=== PATIENT | female | born 1940 | race American Indian/Alaskan Native ===

== ENCOUNTER 2017-08-28 13:25 | Emergency (ER) | payer MEDICARE ==
--- NOTE | 2017-08-28 14:04 | Emergency Department Report ---
- General Chief complaint: Weakness Stated complaint: POOR APPETITE X 3 DAYS Time Seen by Provider: 08/28/17 13:39 Source: EMS Mode of arrival: Stretcher Limitations: Physical Limitation - History of Present Illness Initial comments: Patient from [facility] not acting quite right today history of dementia family says she doesn't wanna eat, family here for eval, possible change in baseline ms, weak all over, not eating, pt is awake and verbal afeb, protecting airway, follows some commands MD Complaint: generalized weakness -: Gradual, unknown Location: generalized Severity: mild, moderate Severity scale (0 -10): 0 Consistency: intermittent Context: other (history of dementia with history of dysphagia) - Related Data Home Medications Medication Instructions Recorded Confirmed Last Taken Acetaminophen [Acetaminophen TAB] 650 mg PO Q6HR PRN 06/30/15 06/30/15 Unknown Bisoprolol/Hctz [Ziac 2.5-6.25] 1 tab PO DAILY 06/30/15 06/30/15 Unknown Docusate Sodium [Colace CAP] 100 mg PO DAILY 06/30/15 06/30/15 Unknown Lisinopril [Zestril TAB] 2.5 mg PO DAILY 06/30/15 06/30/15 Unknown Milk of Magnesia 1,200 mg PO PRN 06/30/15 06/30/15 Unknown Vitamin A 1 tab PO DAILY 06/30/15 06/30/15 Unknown Zofran Odt 4 mg PO PRN 06/30/15 06/30/15 Unknown Previous Rx's Medication Instructions Recorded Last Taken Type Levofloxacin [Levaquin TAB] 500 mg PO QDAY #7 tablet 07/11/15 Unknown Rx Ciprofloxacin HCl [Cipro] 500 mg PO BID #14 tablet 08/28/17 Unknown Rx Allergies Allergy/AdvReac Type Severity Reaction Status Date / Time No Known Allergies Allergy Unverified 06/30/15 16:20 ED Review of Systems ROS: Stated complaint: POOR APPETITE X 3 DAYS Other details as noted in HPI Comment: Unobtainable due to pts medical conditions ED Past Medical Hx - Past Medical History Hx Hypertension: Yes Hx CVA: Yes Hx Pulmonary Embolism: No Hx GERD: Yes Hx Sickle Cell Disease: No Hx Seizures: Yes Hx Kidney Stones: No Hx Psychiatric Treatment: No Hx Tuberculosis: No Hx Dementia: Yes - Social History Smoking Status: Never Smoker Substance Use Type: None - Medications Home Medications: Home Medications Medication Instructions Recorded Confirmed Last Taken Type Acetaminophen [Acetaminophen TAB] 650 mg PO Q6HR PRN 06/30/15 06/30/15 Unknown History Bisoprolol/Hctz [Ziac 2.5-6.25] 1 tab PO DAILY 06/30/15 06/30/15 Unknown History Docusate Sodium [Colace CAP] 100 mg PO DAILY 06/30/15 06/30/15 Unknown History Lisinopril [Zestril TAB] 2.5 mg PO DAILY 06/30/15 06/30/15 Unknown History Milk of Magnesia 1,200 mg PO PRN 06/30/15 06/30/15 Unknown History Vitamin A 1 tab PO DAILY 06/30/15 06/30/15 Unknown History Zofran Odt 4 mg PO PRN 06/30/15 06/30/15 Unknown History Levofloxacin [Levaquin TAB] 500 mg PO QDAY #7 tablet 07/11/15 Unknown Rx Ciprofloxacin HCl [Cipro] 500 mg PO BID #14 tablet 08/28/17 Unknown Rx ED Physical Exam - General Limitations: Physical Limitation General appearance: alert, in no apparent distress, other (awake and alert follow some commands good airway) - Head Head exam: Present: atraumatic, normocephalic - Eye Eye exam: Present: PERRL, EOMI - ENT ENT exam: Present: normal exam, normal orophraynx - Neck Neck exam: Present: normal inspection. Absent: tenderness, meningismus - Respiratory Respiratory exam: Present: normal lung sounds bilaterally. Absent: respiratory distress, wheezes, rales, rhonchi, stridor - Cardiovascular Cardiovascular Exam: Present: regular rate, normal heart sounds. Absent: rubs, gallop - GI/Abdominal GI/Abdominal exam: Present: soft. Absent: distended, tenderness, guarding, rebound, rigid, mass, pulsatile mass - Extremities Exam Extremities exam: Present: normal inspection, normal capillary refill. Absent: pedal edema, joint swelling, calf tenderness - Back Exam Back exam: Present: normal inspection. Absent: CVA tenderness (R) - Neurological Exam Neurological exam: Present: alert, CN II-XII intact, other (confused with baseline dementia but awake and alert). Absent: motor sensory deficit - Skin Skin exam: Absent: cyanosis, diaphoretic, erythema, urticaria, vesicles, petechiae, pallor ED Course Vital Signs 08/28/17 13:39 Temperature 97.6 F Pulse Rate 62 Respiratory 19 Rate Blood Pressure 159/91 O2 Sat by Pulse 99 Oximetry ED Medical Decision Making - Lab Data Result diagrams: 08/28/17 14:22 08/28/17 14:22 - EKG Data EKG shows normal: sinus rhythm - EKG Data Interpretation: other (no acute ischemic change LVH) - Medical Decision Making I was given patient does seem to be appropriate however she does have evidence of UTI. Head CT was process. EKG and troponin are unremarkable. The remainder laboratory studies were unremarkable no evidence of sepsis at this time. Chest x-ray was negative. Patient will be discharged with antibiotics. They will encourage and she'll and they can consider dietary consult to help with her eating and the assisted doctor may need to further manage her poor eating habits at some point time she'll be stable to go back to the assisted. No evidence of acute abdomen or cyanosis is appreciated at this time did have a supple neck no fever nontoxic in appearance tolerating by mouth Critical care attestation.: If time is entered above; I have spent that time in minutes in the direct care of this critically ill patient, excluding procedure time. ED Disposition Clinical Impression: UTI (urinary tract infection) Disposition: - TO HOME OR SELFCARE Is pt being admited?: No Condition: Stable Instructions: Urinary Tract Infection in Women (ED), Failure to Thrive in an Older Adult (ED) Additional Instructions: See the assisted doctor or your regular doctor in 2 days or return if more alarming symptoms or call 911 take the antibiotic as directed Prescriptions: Ciprofloxacin HCl [Cipro] 500 mg PO BID #14 tablet Referrals: SVETA CARTY MD [Primary Care Provider] - 3-5 Days Time of Disposition: 17:40
[2017-08-28] MEDS ORDERED: NACL 0.9% 500 ML 500 ML IV ONE (14:08)
[2017-08-28 14:32] LABS: Basophils % (Auto) 0.4 % (0.0-1.8); Eosinophils # (Auto) 0.1 K/mm3 (0.0-0.4); Eosinophils % (Auto) 0.7 % (0.0-4.3); Hematocrit 43.6 % (30.3-42.9); Hemoglobin 13.7 gm/dl (10.1-14.3); Lymphocytes # (Auto) 2.6 K/mm3 (1.2-5.4); Lymphocytes % (Auto) 34.3 % (13.4-35.0); Mean Corpuscular HGB Conc 32 % (30-34); Mean Corpuscular Hemoglobin 28 pg (28-32); Mean Corpuscular Volume 89 fl (79-97); Monocytes # (Auto) 0.7 K/mm3 (0.0-0.8); Monocytes % (Auto) 9.2 % (0.0-7.3); Platelet Count 144 K/mm3 (140-440); Red Blood Count 4.88 M/mm3 (3.65-5.03); Red Cell Distribution Width 16.8 % (13.2-15.2)
[2017-08-28 14:47] LABS: Alanine Aminotransferase 7 units/L (7-56); Albumin 3.6 g/dL (3.9-5); BUN/Creatinine Ratio 11; Blood Urea Nitrogen 17 mg/dL (7-17); Calcium 9.4 mg/dL (8.4-10.2); Hemolysis Index 3
--- NOTE | 2017-08-28 15:08 | Cat Scan Report ---
FINAL REPORT PROCEDURE: CT HEAD/BRAIN WO CON TECHNIQUE: Computerized tomography of the head was performed without contrast material. HISTORY: Weakness COMPARISON: 06/30/2015 FINDINGS: Skull and scalp: Prior left calvarial craniotomies. Paranasal sinuses: Normal. Ventricles and subarachnoid spaces: Normal. Cerebrum: No evidence of hemorrhage, acute infarction or mass . Cerebellum and brainstem: No evidence of hemorrhage, acute infarction or mass. Vasculature: No hyperdense MCA sign seen at this time. If symptoms and or concern persists recommend MRI. Comments: Moderate diffuse atrophy with mild periventricular microischemic change and central lacunar infarct disease.. IMPRESSION: No acute intracranial pathology suspected at this time
--- NOTE | 2017-08-28 16:53 | XRay Report ---
FINAL REPORT PROCEDURE: Chest. TECHNIQUE: Chest radiograph anteroposterior view. CPT 70465 HISTORY: Weakness. COMPARISON: No prior studies are available for comparison. FINDINGS: The heart size is borderline. There is mild tortuosity of the thoracic aorta. The lungs are clear and well expanded. There are no pleural effusions. The soft tissues and regional skeleton are unremarkable. IMPRESSION: No evidence of acute disease.
[2017-08-28 17:21] LABS: Bacteria,Urine 1+ /HPF (Negative); Bilirubin,Urine NEG (Negative); Blood,Urine NEG (Negative); Color,Urine Yellow (Yellow); Protein,Urine <15 mg/dL mg/dL (Negative); Urobilinogen,Urine < 2.0 mg/dL (<2.0)
[2017-08-28] MEDS ORDERED: ROCEPHIN/NS 1 GM/50 ML 1 GM/50 ML BAG IV ONE (17:33)
[2017-08-28] MEDS ORDERED: cefTRIAXone 1 GM in NACL 0.9% 20 ML IV ONE (17:45)
[2017-08-28 20:03] VITALS: BP 151/89
== END 2017-08-28 20:03 | disposition home or self-care (01) ==
LOC: ED 13:25
DX: N39.0 Urinary tract infection, site not specified (principal); I10 Essential (primary) hypertension; K21.9 Gastro-esophageal reflux disease without esophagitis; Z86.73 Personal history of transient ischemic attack (TIA), and cerebral infarction without residual deficits
CPT/HCPCS: 36415; 70450; 71045; 80053; 81001; 84484; 85025; 93005; 93010; 96374; 99285; J0696; J7040